=== PATIENT | male | born 2000 | race Caucasian/White ===

== ENCOUNTER → 2020-08-20 10:16 | Outpatient (CLI) | payer OTHER, SELFPAY ==
[2020-08-20] MEDS: COVID-19 VACC #1, MRNA(MOD) 100 MCG/0.5 ML VIAL IM (10:24)
== END ==
PROVIDERS: Visit Provider Internal Medicine
DX: Z23 Encounter for immunization (principal)
CPT/HCPCS: 0011A; 91301

== ENCOUNTER → 2022-11-09 10:13 | Outpatient (CLI) | payer BC, SELFPAY | PROVIDERS: PCP Nurse Practitioner; Visit Provider Nurse Practitioner | DX: N48.89 Other specified disorders of penis (principal); N48.9 Disorder of penis, unspecified | CPT/HCPCS: 87070; 87205 ==

== ENCOUNTER → 2022-11-16 08:00 | Outpatient (CLI) | payer BC, SELFPAY ==
--- NOTE | 2022-11-16 08:03 | DI.US.S_ITS ---
LIMITED ULTRASOUND OF LEFT BREAST AND AXILLA: 11/16/2022 CLINICAL: Left breast lump. No prior exams were available for comparison. Color flow ultrasound of the left breast axilla was performed on the areas of interest. Li scale images of the real-time examination were reviewed. There is gynecomastia in the left breast that correlates with clinical concern and palpable abnormality. IMPRESSION: BENIGN There is no sonographic evidence of malignancy. This exam was interpreted at Station ID: [id number]. Electronically Signed By: Hetal mota/:11/16/2022 09:40:57 letter sent: Clinical Evaluation Ultrasound BI-RADS: 2 Benign
== END ==
PROVIDERS: PCP Nurse Practitioner; Referring Provider Nurse Practitioner; Visit Provider Nurse Practitioner
DX: N63.20 Unspecified lump in the left breast, unspecified quadrant (principal); N62 Hypertrophy of breast
CPT/HCPCS: 76642

== ENCOUNTER 2023-01-20 07:50 | Day surgery (SDC) | payer BC, SELFPAY ==
[2023-01-16 14:55] VITALS: BMI 25.2
[2023-01-20] VITALS (9 sets, daily range): BP systolic 126–156; BP diastolic 78–95; PULSE 85–111; RESP 14–25; TEMP 36.1–36.4; O2SAT 96–100; BMI 25.0
[2023-01-20] MEDS: LACTATED RINGERS 1,000 ML 42 ML IV (08:36)
[2023-01-20] MEDS: ACETAMINOPHEN 325 MG TABLET 975 MG PO (08:39)
--- NOTE | 2023-01-20 09:14 | PM.PREOP ---
Pre-operative Note Interval Note History & Physical reviewed/Exam performed by Physician: Yes Changes to H&P: No
[2023-01-20] MEDS: CEFAZOLIN 2 GM/100 ML PREMIX 100 ML IV (09:40)
--- NOTE | 2023-01-20 10:00 | SUR.OPER ---
Supine on padded OR bed, head on pillow, arms padded and tucked at sides, legs uncrossed, safety belt at thigh, tape over blanket over lower legs .
[2023-01-20] MEDS: BUPIVACAINE 0.25% (PF) VIAL 30 ML INJ (10:10)
[2023-01-20] MEDS: BUPIVACAINE LIPOSOME 266 MG/20 ML VIAL INJ (10:11)
[2023-01-20] MEDS: NEOMYCIN/POLYMYXIN/BACITRA UD OINT 1 EACH TOP (10:12)
[2023-01-20] MEDS: OXYCODONE IR 5 MG TABLET PO ×2 (11:06→11:33)
[2023-01-20] MEDS: HYDROMORPHONE 1 MG INJ IV ×4 (11:14→11:31)
--- NOTE | 2023-01-20 11:22 | P.OP_ITS ---
Operative Date/Time/Diagnoses Date of procedure: 01/20/23 Time of procedure: 11:05 Pre-op diagnosis: 1. Dense glans preputial adhesions. 2. Phimosis. 3. Penile pain. Post-op diagnosis: same Procedure & Clinicians Procedure: 1. Takedown of glans preputial adhesions. 2. Revision circumcision (this procedure should have complexity modifier code. The procedure took greater than 150% usual procedural length of time). Same procedure as scheduled: Yes Indications: 1. Dense glans preputial adhesions. 2. Phimosis. 3. Penile pain. Surgeon: Ernesto Christian Click Yes if Unassisted: Yes Anesthesia Type: General and Local (1.33% Exparel and 0.25% Marcaine with epinephrine.) Operative Notes Findings: Dense glans preputial adhesions from approximately 4:00 to 8:00 ventrally with obliteration of the frenular area until take down and release of such adhesions. Closure Type: primary Specimen(s): none sent Estimated Blood Loss (mL): 10 Blood products transfused: none Procedure in detail: The patient was positioned supine was administered general anesthesia. The lower abdomen, genitalia, and groin were then prepped and draped in sterile fashion. Dorsal penile and circumferential penile block was then performed with the above described local anesthetic. Diligent meticulous efforts were undertaken to identify the cutaneous tunnel ventrally which was eventually accomplished. A hemostatic clamp was then applied transversely and was engaged for crush hemostasis. Skin bridge was then divided sharply. Cautery was used sparingly to control sites of bleeding. Next, surgical marker was used appropriately identify the internal, and the ex ternal circumferential incision line as a visual guidance. Using the scalpel sharp division of the internal preputial skin, and then the external preputial skin was then undertaken. Blunt technique was then utilized to separate the subcutaneous tissue in associated structures from the ring like segment of excised skin. The skin was discarded and not submitted to pathology. 4-0 chromic was then used to reapproximate the internal, and external edges at the 12, 3, 6, and 9 positions. A running vertical mattress of 4-0 chromic was then utilized circumferentially to complete the closure of the incision lines. The penis was then cleaned and dried. A layer of antibiotic ointment impregnated Xeroform gauze was then applied circumferential incision followed by 1 in Kerlix and a non constricting manner, followed by 2 in Coban in a non constricting manner, and then finally the entire dressing apparatus was secured in place with 1 in plastic tape, again a non constricting manner. The patient was then awakened, transferred to [facility], and transported recovery in stable condition. Complications: none Post-operative Condition: stable Disposition: PACU Plan for aftercare: Discharge home.
--- NOTE | 2023-01-20 11:29 | P.HP_ITS ---
History of Present Illness History of Present Illness Chief complaint: Urology [facility] Medical History (Updated 12/23/22 @ 16:35 by Ernesto Christian MD) Acquired phimosis of penis Adhesions of prepuce and glans penis Balanitis Gynecomastia, male Surgical History Anesthesia History of appendectomy (~2005) Family History Mother Diabetes mellitus Hyperlipidemia Grandfather Cancer Grandmother Cancer Diabetes mellitus Atrial fibrillation Pacemaker Hypertension Hyperlipidemia Grandfather Prostate cancer Grandmother Skin cancer Social History household members: family Smoking Status: Never smoker alcohol intake: current Meds Home Medications and Allergies Home Medications Medication Instructions Recorded Confirmed Type No Known Home Medications 12/19/22 12/23/22 History oxycodone 5 mg tablet 5 mg PO Q4H PRN pain #14 tabs 01/20/23 Rx Allergies Allergy/AdvReac Type Severity Reaction Status Date / Time No Known Drug Allergies Allergy Verified 01/20/23 08:10 Exam Vital Signs (past 8 hours): - 01/20/23 08:17 01/20/23 11:02 01/20/23 11:08 Temperature 97.5 F L 97 F L Pulse Rate 93 H 107 H 111 H Respiratory Rate 16 18 17 Blood Pressure 141/87 H 129/78 156/95 H Pulse Oximetry 99 98 99 Oxygen Delivery Method Room Air Room Air Room Air Oxygen Flow Rate 0 0 01/20/23 11:12 01/20/23 11:17 Temperature Pulse Rate 107 H 98 H Respiratory Rate 23 25 H Blood Pressure 138/94 H 153/92 H Pulse Oximetry 99 98 Oxygen Delivery Method Room Air Room Air Oxygen Flow Rate 0 0 Oxygen Delivery Method Room Air Oxygen Flow Rate 0
[2023-01-20] MEDS: MEPERIDINE 50 MG/ML INJ 12.5 MG IV (11:34)
== END 2023-01-20 12:23 | disposition home or self-care (01) ==
PROVIDERS: PCP Family Medicine; Referring Provider Specialist; Visit Provider Specialist
PROC: (CPT 54163; principal; 2023-01-20 09:15)
DX: N47.1 Phimosis (principal); N47.5 Adhesions of prepuce and glans penis; N48.1 Balanitis
CPT/HCPCS: 54163; 54162; C9290; J0690; J1100; J1170; J2175; J2250; J2405; J2704; J3010